=== PATIENT | male | born 1985 | race Caucasian/White ===

== ENCOUNTER 2019-03-09 23:12 | Emergency (ER) | payer OTHER ==
[~2019-03-09] VITALS: Ht 165.1 cm; Wt 88.5 kg
[2019-03-09 23:27] VITALS: BP 124/75
--- NOTE | 2019-03-09 23:59 | ED.ADGEN ---
Past History Past Medical History: No Pertinent History, Bronchitis Past Surgical History: Other Additional Past Surgical Histo: WISDOM TEETH Alcohol Use: Occasionally Drug Use: None Adult General Chief Complaint Chief Complaint ".. I ve got a cough and fever...".." I ve been sick since Monday.... " HPI HPI Patient is a 33 year old male who presents with above hx and complaints cough, sore throat, fever, chills, malaise, and arthralgia. Patient's cough was initially productive but now is dry and hacking. No specific ill contacts or recent travel. Patient has had previous episodes of bronchitis and reactive airway disease. Patient has not had flu vaccination this season.. Pt. give s hx of recent dental extractions on 02/22/2019. Review of Systems Review of Systems Constitutional: History of fever or chills [] Eyes: Denies change in visual acuity, redness, or eye pain [] HENT: History of nasal congestion and sore throat [] Respiratory: History of cough and wheezing . Cardiovascular: No additional information not addressed in HPI [] GI: Denies abdominal pain, nausea, vomiting, bloody stools or diarrhea [] : Denies dysuria or hematuria [] Musculoskeletal: Denies back pain or joint pain [] Integument: Denies rash or skin lesions [] Neurologic: Denies headache, focal weakness or sensory changes [] Endocrine: Denies polyuria or polydipsia [] All other systems were reviewed and found to be within normal limits, except as documented in this note. Family History Family History Noncontributory Current Medications Current Medications Current Medications Medications (Trade) Dose Ordered Sig/Chris Start Time Stop Time Status Last Admin Dose Admin Acetaminophen (Tylenol) 1,000 mg 1X ONCE 03/10/19 00:00 03/10/19 00:34 DC 03/09/19 23:55 1,000 MG Albuterol Sulfate (Ventolin Hfa Inhaler) 60 puff STK-MED ONCE 03/10/19 01:03 03/10/19 01:08 DC Azithromycin (Zithromax) 500 mg 1X ONCE 03/10/19 00:45 03/10/19 01:06 DC 03/10/19 00:49 500 MG Diphenhydramine HCl (Benadryl) 50 mg 1X ONCE 03/10/19 00:45 03/10/19 01:06 DC 03/10/19 00:49 50 MG Prednisone (Prednisone) 50 mg 1X ONCE 03/10/19 00:45 03/10/19 01:06 DC 03/10/19 00:49 50 MG Allergies Allergies Allergies Coded Allergies Type Severity Reaction Last Updated Verified No Known Drug Allergies 03/09/19 No Physical Exam Physical Exam Constitutional: Moderate acute distress, non-toxic appearance. [] HENT: Normocephalic, atraumatic, bilateral external ears normal, oropharynx moist, injected pharynx, no oral exudates, nose injected turbinates and clear rhinorrhea Eyes: PERRLA, EOMI, conjunctiva normal, no discharge. [] Neck: Normal range of motion, no tenderness, supple, no stridor. More than 17 inches circumference Cardiovascular:Heart rate regular rhythm, no murmur [] Lungs & Thorax: Bilateral breath sounds with apex with scattered wheezing throughout. There is some basilar crackles on the left on Auscultation [] Abdomen: Bowel sounds normal, soft, no tenderness, no masses, no pulsatile masses. [] Piece. Skin: Warm, dry, no erythema, no rash. [] Back: No tenderness, no CVA tenderness. [] Extremities: No tenderness, no cyanosis, no clubbing, ROM intact, no edema. [] No cording in legs. Neurologic: Alert and oriented X 3, normal motor function, normal sensory function, no focal deficits noted. [] Psychologic: Affect anxious, judgment normal, mood normal. [] Current Patient Data Vital Signs Vital Signs Date Time Temp Pulse Resp B/P (MAP) Pulse Ox O2 Delivery O2 Flow Rate FiO2 03/09/19 23:27 101.8 122 18 93 Room Air Lab Results Laboratory Tests Test 03/09/19 23:35 Influenza Type A (Rapid) Negative (NEGATIVE) Influenza Type B (Rapid) Negative (NEGATIVE) Group A Streptococcus Rapid Negative (NEGATIVE) EKG EKG [] Radiology/Procedures Radiology/Procedures I interpretation of chest x-ray shows patchy atelectasis versus infiltrate. Left lower base may be some broncho grams. Signed PATIENT: LOBO ARREAGA ACCOUNT: [id number] : 1985 LOCATION: ER AGE: 33 SEX: M EXAM STATUS: DEP ER ORD. PHYSICIAN: GURVINDER WADSWORTH MD REASON: cough fever PROCEDURE: CHEST PA & LATERAL PA and lateral chest. HISTORY: Cough and fever PA and lateral views were taken of the chest. Patient's taken a very poor inspiration which makes evaluation difficult. There is mild haziness in the lung bases which could be atelectasis due to the poor inspiration or mild infiltrate or pneumonia would be possible. There is no pleural effusion. The heart is normal in size. IMPRESSION: 1. Poor inspiration. 2. Crowding of the vasculature and atelectasis versus mild infiltrates, follow-up view with a better inspiration could be of benefit. Electronically signed by: Eduar Epstein MD (03/10/2019 2:12 AM) [facility] DICTATED AND SIGNED BY: EDUAR EPSTEIN MD DATE: 03/10/19211 CC: GURVINDER WADSWORTH MD; PCP,NO ~ Course & Med Decision Making Course & Med Decision Making Pertinent Labs and Imaging studies reviewed. (See chart for details) Patient push fluids. Get adequate rest. Tylenol and ibuprofen for discomfort. Benadryl 50 mg 4 times a day for nasal drainage and congestion. Take prednisone 50 mg a day for 5 days. Use MDI 2 puffs 4 times a day. Take his Zithromax 250 a day. Follow-up primary care. Return if any concerns. [] Final Impression Final Impression 1. Upper respiratory infection 2. Bronchitis 3. Suspect left basilar pneumonia versus atelectasis[] Dragon Disclaimer Dragon Disclaimer This electronic medical record was generated, in whole or in part, using a voice recognition dictation system. Dragon Disclaimer This chart was dictated in whole or in part using Voice Recognition software in a busy, high-work load, and often noisy Emergency Department environment. It may contain unintended and wholly unrecognized errors or omissions. Dragon Disclaimer This chart was dictated in whole or in part using Voice Recognition software in a busy, high-work load, and often noisy Emergency Department environment. It may contain unintended and wholly unrecognized errors or omissions. GURVINDER WADSWORTH MD Mar 09, 2019 23:59
[2019-03-10] MEDS ORDERED: ACETAMINOPHEN 500 MG TABLET PO ONE
[2019-03-10 00:24] LABS: INFLUENZA A PATIENT NEGATIVE (NEGATIVE); INFLUENZA B PATIENT NEGATIVE (NEGATIVE)
[2019-03-10] MEDS ORDERED: AZITHROMYCIN 250 MG TABLET. PO ONE (00:45)
[2019-03-10] MEDS ORDERED: predniSONE 10 MG TABLET PO ONE (00:45)
[2019-03-10] MEDS ORDERED: ALBUTEROL SULFATE 8GM INHALER. INH ONE (00:45)
[2019-03-10] MEDS ORDERED: diphenhydrAMINE HCL 25 MG CAPSULE PO ONE (00:45)
[2019-03-10] MEDS ORDERED: ALBUTEROL SULFATE 8GM INHALER. ONE (01:03)
[2019-03-10] MEDS ORDERED: AZIT250T PO (01:41)
[2019-03-10] MEDS ORDERED: PRED50TA PO (01:41)
--- NOTE | 2019-03-10 02:15 | RAD ---
PA and lateral chest. HISTORY: Cough and fever PA and lateral views were taken of the chest. Patient's taken a very poor inspiration which makes evaluation difficult. There is mild haziness in the lung bases which could be atelectasis due to the poor inspiration or mild infiltrate or pneumonia would be possible. There is no pleural effusion. The heart is normal in size. IMPRESSION: 1. Poor inspiration. 2. Crowding of the vasculature and atelectasis versus mild infiltrates, follow-up view with a better inspiration could be of benefit. Electronically signed by: Eduar Bowles MD (03/10/2019 2:12 AM) [facility]
== END 2019-03-10 01:45 | disposition home or self-care (01) ==
LOC: ER 23:12
DX: J06.9 Acute upper respiratory infection, unspecified (principal); J40 Bronchitis, not specified as acute or chronic
CPT/HCPCS: 71046; 87070; 87804; 87880; 94640; 99285; J0456; J7512; J7613; Q0163; 94664